=== PATIENT | female | born 1985 | race Two or more races ===

== ENCOUNTER 2017-06-29 15:12 | Outpatient (CLI) | payer OTHER | END 2017-06-29 15:17 | disposition home or self-care (01) | LOC: RAD 15:12 | DX: R05 Cough (principal) ==

== ENCOUNTER 2017-07-03 09:28 | Outpatient (CLI) | payer OTHER | END 2017-07-03 09:36 | disposition home or self-care (01) | LOC: RX STUDY 09:28 | DX: R13.19 Other dysphagia (principal) ==

== ENCOUNTER 2020-07-13 07:27 | Outpatient (CLI) | payer OTHER | END 2020-07-13 07:29 | disposition home or self-care (01) | LOC: TOM 07:27 | PROVIDERS: ATTEND Internal Medicine | DX: R05 Cough (principal) ==

== ENCOUNTER 2020-07-13 09:05 | Outpatient (CLI) | payer OTHER | END 2020-07-13 09:12 | disposition home or self-care (01) | LOC: LAB 09:05 | PROVIDERS: ATTEND Internal Medicine | DX: R05 Cough (principal) ==